=== PATIENT | male | born 1970 | race African-American/Black ===

== ENCOUNTER 2016-04-07 15:41 | Emergency (ER) | payer OTHER ==
--- NOTE | 2016-04-07 16:38 | DIAGNOSTIC IMAGING REPORT ---
PROCEDURE: XR CHEST 2 VIEW INDICATION: COUGH TECHNIQUE: PA and lateral views. COMPARISON: None. FINDINGS: Lungs are clear. Heart and mediastinum are normal. Thorax is normal. IMPRESSION: 1. Negative chest.
--- NOTE | 2016-04-07 17:54 | DIAGNOSTIC IMAGING REPORT ---
PROCEDURE: CT THORAX WITHOUT CONTRAST INDICATION: COUGH AND POSSIBLE FINDING ON CXR TECHNIQUE: Noncontrast axial images were obtained of the chest with coronal and sagittal reformations. COMPARISON: Chest x-ray 04/07/2016 FINDINGS: Calcified granulomas and right hilar lymph nodes. Minor alveolar infiltrate in the left lower lobe superior segment suggestive of pneumonitis. No enlarged lymph nodes or effusion. Normal thoracic aorta. Heart size is normal. Visualized upper abdomen is unremarkable. Mild degenerative changes of the spine. IMPRESSION: 1. Minor left lower lobe infiltrate suggestive of pneumonia 2. Old granulomatous disease 3. Results discussed with Dr. Whitfield
--- NOTE | 2016-04-07 18:03 | ED CLINICAL REPORT ---
Clinical Report - Physicians/Mid Levels [facility] [address] [place] [address] 04/07/2016 15:42 Patient: JOAN ODMÍNGUEZ Arrived- By private vehicle. Historian- patient. HISTORY OF PRESENT ILLNESS Chief Complaint: COUGH. This started the past week and is still present and worsening. It was gradual in onset and has been constant but is not gone now. The illness is described as moderate. The patient has had sputum production, a cough, nasal congestion and fever. No muscle aches or chills. Additional history - No known contact with a sick individual. No recent travel. (reports mild anterior headache only when coughing. no head ache at rest. locate to the anterior forehead). Similar symptoms previously: None. Recent medical care: Not recently seen/assessed. REVIEW OF SYSTEMS No diarrhea, abdominal pain or skin rash. All systems otherwise negative, except as recorded above. PAST HISTORY See nurses notes. Medications: ALPRAZolam Oral. Wellbutrin Oral. Allergies: No Known Drug Allergy. SOCIAL HISTORY Smoker- current status unknown. Occasional alcohol use. History of drug use: marijuana. No recent travel. Is a local resident. FAMILY HISTORY Negative. ADDITIONAL NOTES The nursing notes have been reviewed. PHYSICAL EXAM Vital Signs: 04/07/2016 15:43 BP: 150/97. HR: 87. RR: 18. O2 saturation: 98%. Temp: 99.3 F. Hypertensive. Oxygen saturation normal. Appearance: Alert. No acute distress. Eyes: Pupils equal, round and reactive to light. Eyes normal inspection. ENT: Ears normal. Nose normal. Pharynx normal. Uvula midline. (no papilledema. Normal appearing retinal vasculature). Neck: Normal inspection. Neck supple. No meningeal signs. CVS: Normal heart rate and rhythm. Heart sounds normal. Pulses normal. Respiratory: No respiratory distress. Breath sounds normal. No rales, rhonchi, wheezes or stridor. Abdomen: Soft and nontender. No organomegaly. Skin: Skin warm and dry. Normal skin color. No rash. Normal skin turgor. Extremities: Extremities exhibit normal ROM. No lower extremity edema. Neuro: Oriented X 3. No motor deficit. No sensory deficit. Reflexes normal. LABS, X-RAYS, AND EKG Chest X-ray: (PROCEDURE: XR CHEST 2 VIEW INDICATION: COUGH TECHNIQUE: PA and lateral views. COMPARISON: None. FINDINGS: Lungs are clear. Heart and mediastinum are normal. Thorax is normal. IMPRESSION: 1. Negative chest.). PROGRESS AND PROCEDURES Course of Care: the patient is a pleasant 45-year-old male presenting for evaluation of cough that has been going for the past week. Patient reports fever in addition to the cough however reports no fever at this time. Headache is also anterior and only occurs when he coughs. Patient is agreeable to the treatment and plan. Patient otherwise is nontoxic and in no acute distress. Medications for the cough has been provided. The patient's chest x-ray as noted for granulomatous findings. I discussed with patient in regards to CT scan of the chest for evaluation of these. There is also a particular point on the patient's right chest that was somewhat concerning for possible cavitary lesion. This is not mentioned on the patient'sread from radiology., However base and the patient's symptoms would be concern for possible cavitary mass. The patient's CT scan was remarkable for pneumonia. This was not found on patient's chest x-ray. Because of the findings onCT scan, patient will be treated with antibiotics. Vital signs here in the emergency department are unremarkable. The patient is admitted to the hospital require further emergency department workup/evaluation. On further discussion with patient, patient's significant other wanted to speak to me in private. Significant other states that she has a history of HIV. Patient has been reportedly negative for HIV however in light of this, encouraged patient to follow up with his primary care doctor for further evaluation of his HIV status. Patient was agreeable to this. I discussed the patient workup, diagnosis, home care, follow-up, and return precautions. All questions answered. The patient expressed understanding of these instructions and was agreeable to that. Prior to patient's discharge from the emergency department is noted to be nontoxic and in no acute distress. Lungs are clear on examination. No evidence of sepsis. CLINICAL IMPRESSION 04/07/2016 15:47 Pain level now: 11/01. 04/07/2016 15:43 BP: 150/97. HR: 87. RR: 18. O2 saturation: 98%. Temp: 99.3 F. Blood pressure normal. Oxygen saturation normal. Bacterial pneumonia. Empiric antibiotics given in the ED and prescribed. (acute left lower lobe). Nontraumatic lumbar back pain associated with muscle strain. (acute exacerbation of chronic). INSTRUCTIONS Warnings: GENERAL WARNINGS: Return or contact your physician immediately if your condition worsens or changes unexpectedly, if not improving as expected, or if other problems arise. Specifically return if pain, vomiting, bleeding, breathing difficulty or fever. Your Current Medications: CONTINUE TAKING THE FOLLOWING MEDICATIONS: ALPRAZolam Oral. Wellbutrin Oral. Prescription Medications: Azithromycin Z-Orestes: Take according to package instructions. No refills. Phenergan w/ Codeine 10mg / 6.25mg per 5 mL: take 1 teaspoon every 6 hours as needed for pain or cough. Dispense sixty (60) mL. No refill. Substitution is permissible. Hydrocodone/APAP 5mg / 325mg: take 1 orally every 6 hours as needed for pain. Dispense twelve (12). No refill. Follow-up: Return to the emergency department as needed. Follow up with your doctor in three days. Reason for referral: recheck today's concerns. Summary of care provided to patient via paper. Screening today revealed the patient's blood pressure to be in the normal range. The patient should follow up with a primary care provider for blood pressure management. Understanding of the discharge instructions verbalized by patient. (Electronically signed by Sam Whitfield Dr. 04/12/2016 18:03)
--- NOTE | 2016-04-07 18:03 | ED NURSING NOTES ---
Clinical Report - Nurses [facility] [address] [place] [address] 04/07/2016 15:42 Patient: JOAN DOMÍNGUEZ TRIAGE Triage time 15:44. Acuity: LEVEL 4. Chief Complaint: "FLU", FEVER and COUGH and ("cough till I get a headache"). Alert. No acute distress. SEPSIS SCREEN: Sepsis Screen. Negative (no infection suspected/documented). EARNEST COMA SCORE: [place] Coma Scale: 15- eyes open spontaneously (4); best verbal response- oriented x 4 (5); best motor response- obeys commands (6). --15:47 Sarah Spencer R.N. 15:43 04/07/16. BP: 150/97. HR: 87. RR: 18. O2 saturation: 98%. Temp: 99.3 F. --15:47 Sarah Spencer R.N. 15:47 04/07/16. Pain level now: 11/01. --15:47 Sarah Spencer R.N. Weight: 74.8 kg stated. Height/Length: 73 inches Per Patient. BMI: 21.8. --15:47 Sarah Spencer R.N. Medications ALPRAZolam Oral. Wellbutrin Oral. --15:45 Sarah Spencer R.N. Allergies No Known Drug Allergy. --15:45 Sarah Spencer R.N. History Arrived by private vehicle. Historian: patient. Unaccompanied. Primary physician (none). Onset. (1 week ago). Treatment PILLOW AGENT: None. PAST MEDICAL HX: Immunizations: up-to-date. SOCIAL HX: Light tobacco smoker (cigarette)- less than 1/2 a pack per day. Occasional alcohol use; consumes beer. History of drug use: marijuana. (stopped smoking a few years ago). No recent travel. No infectious disease exposure. No known contact with a sick individual. ABUSE ASSESSMENT: Abuse assessment: The patient was asked "Do you feel safe in your home?" and "Has anyone hurt you or threatened to hurt you?". No report of abuse. SELF HARM ASSESSMENT: A self harm assessment was performed. The patient answered "no" to the question "Do you have thoughts of harming or killing yourself?" and "Have you recently had thoughts about harming or killing others?". NUTRITIONAL RISK ASSESSMENT: The nutritional risk assessment revealed no deficiencies. FUNCTIONAL ASSESSMENT: Functional assessment: no impairments noted. LEARNING NEEDS ASSESSMENT: The learning needs assessment revealed no barriers. --15:47 Sarah Spencer R.N. PROBLEMS: Back Pain. Abrasion(s). Bipolar Disorder. Depression. --15:46 Sarah Spencer R.N. ADDITIONAL SURGERIES: Hernia Repair. --15:46 Sarah Spencer R.N. Interventions ID band on patient. Ambulatory. --15:47 Sarah Spencer R.N. PHYSICAL ASSESSMENT Ambulatory to room. GENERAL / NEURO / PSYCH: Alert. Appears in no acute distress. RESPIRATORY: Respirations not labored. CVS: Capillary refill less than 2 seconds. SKIN: Skin intact. Skin is warm and dry. --15:47 Sarah Spencer R.N. NURSING PROGRESS NOTES Patient gowned. Head of bed elevated. Two patient identifiers checked. Call light placed in reach. Side rails up x 2. Bed placed in lowest position. Brakes of bed on. Patient ready for evaluation- chart flagged. --15:48 Sarah Spencer R.N. Patient ID band checked for patient name, birthdate and medical record number: patient confirmed. Flu swab obtained by RN via nasal pharyngeal swab. Labeled in the presence of the patient and sent to lab. --15:51 Sarah Spencer R.N. Patient transported to radiology by stretcher with [employer]. --16:24 Sarah Spencer R.N. 16:41 04/07/2016 PHENERGAN-CODEINE (Promethazine-Codeine) PO 10 mL given. Allergies verified and confirmed 5 rights. --16:41 Sarah Spencer R.N. 16:41 04/07/2016 Tylenol (Acetaminophen) PO 650 mg given. Allergies verified and confirmed 5 rights. --16:41 Sarah Spencer R.N. 16:43 04/07/2016 Toradol (Ketorolac Tromethamine) IM 60 mg given. Given in the right gluteus rosetta. Allergies verified and confirmed 5 rights. --16:43 Sarah Spencer R.N. 17:03 04/07/2016 Ativan (LORazepam) PO 1 mg given. Allergies verified, confirmed 5 rights and sedative warning given to the patient. --17:03 Sarah Spencer R.N. 17:05 04/07/2016 Toradol IM Response: no adverse reaction the patient feels better. --17:05 Sarah Spencer R.N. Patient transported to MA by stretcher with tech. --17:28 Sarah Spencer R.N. Patient returned from CT by stretcher with tech. --17:37 Sarah Spencer R.N. 18:13 04/07/2016 Azithromycin PO 500 mg given. Allergies verified and confirmed 5 rights. --18:13 Sarah Spencer R.N. 18:15 04/07/2016 Morphine (Morphine Sulfate (PF)) IM 5 mg given. Given in the right deltoid. Allergies verified, confirmed 5 rights and sedative warning given to the patient. --18:15 Sarah Spencer R.N. 18:30 04/07/2016 Morphine IM Response: no adverse reaction symptoms have improved. --18:38 Sarah Spencer R.N. DISPOSITION / DISCHARGE 18:30 04/07/16. BP: 136/89. HR: 79. RR: 17. O2 saturation: 99%. Temp: 99.1 F. Mclaughlin-Perez pain scale: 4/10. --18:36 Sarah Spencer R.N. 18:30. Departure time: 1830. Condition at departure: stable. No learning barriers present. Discharge instructions provided and reviewed with the patient. Reviewed medication(s) side effects, precautions, dosing and course information. Prescription(s) given to the patient. Reviewed referral to family practice for followup. Patient verbalized understanding. Written instructions provided in Turkmen. The patient was discharged home and accompanied by steel rigger. He left the Emergency Department ambulatory and via private vehicle. Menagerie Caretaker driving. Medication list reviewed and validated. --18:37 Sarah Spencer R.N. Locked/Released at 04/07/2016 18:38 by Sarah Spencer R.N.
--- NOTE | 2016-04-07 18:03 | ED NURSING NOTES ---
Clinical Report - Nurses [facility] [address] [place] [address] 04/07/2016 15:42 Patient: JOAN DOMÍNGUEZ TRIAGE Triage time 15:44. Acuity: LEVEL 4. Chief Complaint: "FLU", FEVER and COUGH and ("cough till I get a headache"). Alert. No acute distress. SEPSIS SCREEN: Sepsis Screen. Negative (no infection suspected/documented). EARNEST COMA SCORE: [place] Coma Scale: 15- eyes open spontaneously (4); best verbal response- oriented x 4 (5); best motor response- obeys commands (6). --15:47 Sarah Spencer R.N. 15:43 04/07/16. BP: 150/97. HR: 87. RR: 18. O2 saturation: 98%. Temp: 99.3 F. --15:47 Sarah Spencer R.N. 15:47 04/07/16. Pain level now: 11/01. --15:47 Sarah Spencer R.N. Weight: 74.8 kg stated. Height/Length: 73 inches Per Patient. BMI: 21.8. --15:47 Sarah Spencer R.N. Medications ALPRAZolam Oral. Wellbutrin Oral. --15:45 Sarah Spencer R.N. Allergies No Known Drug Allergy. --15:45 Sarah Spencer R.N. History Arrived by private vehicle. Historian: patient. Unaccompanied. Primary physician (none). Onset. (1 week ago). Treatment LEAD TECHNICAL WRITER: None. PAST MEDICAL HX: Immunizations: up-to-date. SOCIAL HX: Light tobacco smoker (cigarette)- less than 1/2 a pack per day. Occasional alcohol use; consumes beer. History of drug use: marijuana. (stopped smoking a few years ago). No recent travel. No infectious disease exposure. No known contact with a sick individual. ABUSE ASSESSMENT: Abuse assessment: The patient was asked "Do you feel safe in your home?" and "Has anyone hurt you or threatened to hurt you?". No report of abuse. SELF HARM ASSESSMENT: A self harm assessment was performed. The patient answered "no" to the question "Do you have thoughts of harming or killing yourself?" and "Have you recently had thoughts about harming or killing others?". NUTRITIONAL RISK ASSESSMENT: The nutritional risk assessment revealed no deficiencies. FUNCTIONAL ASSESSMENT: Functional assessment: no impairments noted. LEARNING NEEDS ASSESSMENT: The learning needs assessment revealed no barriers. --15:47 Sarah Spencer R.N. PROBLEMS: Back Pain. Abrasion(s). Bipolar Disorder. Depression. --15:46 Sarah Spencer R.N. ADDITIONAL SURGERIES: Hernia Repair. --15:46 Sarah Spencer R.N. Interventions ID band on patient. Ambulatory. --15:47 Sarah Spencer R.N. PHYSICAL ASSESSMENT Ambulatory to room. GENERAL / NEURO / PSYCH: Alert. Appears in no acute distress. RESPIRATORY: Respirations not labored. CVS: Capillary refill less than 2 seconds. SKIN: Skin intact. Skin is warm and dry. --15:47 Sarah Spencer R.N. NURSING PROGRESS NOTES Patient gowned. Head of bed elevated. Two patient identifiers checked. Call light placed in reach. Side rails up x 2. Bed placed in lowest position. Brakes of bed on. Patient ready for evaluation- chart flagged. --15:48 Sarah Spencer R.N. Patient ID band checked for patient name, birthdate and medical record number: patient confirmed. Flu swab obtained by RN via nasal pharyngeal swab. Labeled in the presence of the patient and sent to lab. --15:51 Sarah Spencer R.N. Patient transported to radiology by stretcher with [employer]. --16:24 Sarah Spencer R.N. 16:41 04/07/2016 PHENERGAN-CODEINE (Promethazine-Codeine) PO 10 mL given. Allergies verified and confirmed 5 rights. --16:41 Sarah Spencer R.N. 16:41 04/07/2016 Tylenol (Acetaminophen) PO 650 mg given. Allergies verified and confirmed 5 rights. --16:41 Sarah Spencer R.N. 16:43 04/07/2016 Toradol (Ketorolac Tromethamine) IM 60 mg given. Given in the right gluteus rosetta. Allergies verified and confirmed 5 rights. --16:43 Sarah Spencer R.N. 17:03 04/07/2016 Ativan (LORazepam) PO 1 mg given. Allergies verified, confirmed 5 rights and sedative warning given to the patient. --17:03 Sarah Spencer R.N. 17:05 04/07/2016 Toradol IM Response: no adverse reaction the patient feels better. --17:05 Sarah Spencer R.N. Patient transported to OR by stretcher with tech. --17:28 Sarah Spencer R.N. Patient returned from CT by stretcher with tech. --17:37 Sarah Spencer R.N. 18:13 04/07/2016 Azithromycin PO 500 mg given. Allergies verified and confirmed 5 rights. --18:13 Sarah Spencer R.N. 18:15 04/07/2016 Morphine (Morphine Sulfate (PF)) IM 5 mg given. Given in the right deltoid. Allergies verified, confirmed 5 rights and sedative warning given to the patient. --18:15 Sarah Spencer R.N. 18:30 04/07/2016 Morphine IM Response: no adverse reaction symptoms have improved. --18:38 Sarah Spencer R.N. DISPOSITION / DISCHARGE 18:30 04/07/16. BP: 136/89. HR: 79. RR: 17. O2 saturation: 99%. Temp: 99.1 F. Mclaughlin-Perez pain scale: 4/10. --18:36 Sarah Spencer R.N. 18:30. Departure time: 1830. Condition at departure: stable. No learning barriers present. Discharge instructions provided and reviewed with the patient. Reviewed medication(s) side effects, precautions, dosing and course information. Prescription(s) given to the patient. Reviewed referral to family practice for followup. Patient verbalized understanding. Written instructions provided in Albanian. The patient was discharged home and accompanied by railroad detective. He left the Emergency Department ambulatory and via private vehicle. Coal Shoveler driving. Medication list reviewed and validated. --18:37 Sarah Spencer R.N. Locked/Released at 04/07/2016 18:38 by Sarah Spencer R.N.
--- NOTE | 2016-04-07 18:04 | ED ORDER SUMMARY ---
..... Patient: JOAN DOMÍNGUEZ OrderSheet [facility] VisitID: [id number] [place] [address] 45y, M Registration Date/Time: 04/07/2016 ORDER SHEET Weight: 74.8 kg (stated) Allergies: No Known Drug Allergy GENERAL ORDERS: Chest 2V Urgent (16:05 04/07/2016 Jonnie Arevalo) (Ack 16:12 NHouse ER Tech1) (16:40 SReitz R.N.) CT Thorax wo Cont Urgent (16:49 04/07/2016 Jonnie Arevalo) (Ack 17:00 SReitz R.N.) (17:36 SReitz R.N.) MEDICATION ORDERS: Toradol IM 60 mg (NOW) (16:06 04/07/2016 Jonnie Arevalo) (Ack 16:36 SReitz R.N.) (16:43 SReitz R.N.) Tylenol PO 650 mg (NOW) (16:06 04/07/2016 Jonnie Arevalo) (Ack 16:36 SReitz R.N.) (16:41 SReitz R.N.) Phenergan-Codeine PO 10 mL (HIGH ALERT MEDICATION, NOW) (16:06 04/07/2016 Jonnie Arevalo) (Ack 16:36 SReitz R.N.) (16:41 SReitz R.N.) Ativan PO 1 mg (HIGH ALERT MEDICATION, NOW) (16:49 04/07/2016 Jonnie Arevlao) (Ack 17:02 SReitz R.N.) (17:03 SReitz R.N.) Morphine IM 5 mg (HIGH ALERT MEDICATION, NOW) (17:57 04/07/2016 Jonnie Arevalo) (Ack 18:09 SReitz R.N.) (18:15 SReitz R.N.) Azithromycin PO 500 mg (NOW) (17:57 04/07/2016 Jonnie Arevalo) (Ack 18:09 SReitz R.N.) (18:13 SReitz R.N.) IV FLUIDS: ORDER SHEET NOTES: [Electronically signed by Sarah Spencer R.N. (18:38 04/07/2016)] [Electronically signed by Sam Whitfield Dr. (18:03 04/12/2016)] [Electronically locked/signed by Sarah Spencer R.N. (18:38 04/07/2016)]
--- NOTE | 2016-04-07 18:04 | ED ORDER SUMMARY ---
..... Patient: JOAN DOMÍNGUEZ OrderSheet [facility] VisitID: [id number] [place] [address] 45y, M Registration Date/Time: 04/07/2016 ORDER SHEET Weight: 74.8 kg (stated) Allergies: No Known Drug Allergy GENERAL ORDERS: Chest 2V Urgent (16:05 04/07/2016 Jonnie Arevalo) (Ack 16:12 NHouse ER Tech1) (16:40 SReitz R.N.) CT Thorax wo Cont Urgent (16:49 04/07/2016 Jonnie Arevalo) (Ack 17:00 SReitz R.N.) (17:36 SReitz R.N.) MEDICATION ORDERS: Toradol IM 60 mg (NOW) (16:06 04/07/2016 Jonnie Arevalo) (Ack 16:36 SReitz R.N.) (16:43 SReitz R.N.) Tylenol PO 650 mg (NOW) (16:06 04/07/2016 Jonnie Arevalo) (Ack 16:36 SReitz R.N.) (16:41 SReitz R.N.) Phenergan-Codeine PO 10 mL (HIGH ALERT MEDICATION, NOW) (16:06 04/07/2016 Jonnie Arevalo) (Ack 16:36 SReitz R.N.) (16:41 SReitz R.N.) Ativan PO 1 mg (HIGH ALERT MEDICATION, NOW) (16:49 04/07/2016 Jonnie Arevalo) (Ack 17:02 SReitz R.N.) (17:03 SReitz R.N.) Morphine IM 5 mg (HIGH ALERT MEDICATION, NOW) (17:57 04/07/2016 Jonnie Arevalo) (Ack 18:09 SReitz R.N.) (18:15 SReitz R.N.) Azithromycin PO 500 mg (NOW) (17:57 04/07/2016 Jonnie Arevalo) (Ack 18:09 SReitz R.N.) (18:13 SReitz R.N.) IV FLUIDS: ORDER SHEET NOTES: [Electronically signed by Sarah Spencer R.N. (18:38 04/07/2016)] [Electronically signed by Sam Whitfield Dr. (18:03 04/12/2016)] [Electronically locked/signed by Sarah Spencer R.N. (18:38 04/07/2016)]
--- NOTE | 2016-04-12 18:03 | ED MED RECONCILIATION SUMMARY ---
Patient: JOAN DOMÍNGUEZ Medication Reconciliation Report [facility] VisitID: [id number] [address] [place] [address] 45y, M Registration Date/Time: 04/07/2016 Weight: 74.8 kg Height/Length: 73 in. BMI: 21.8 ALLERGIES: No Known Drug Allergy The patient's Home Medications are listed below: CONTINUE TAKING THE FOLLOWING MEDICATIONS: ALPRAZolam Oral Wellbutrin Oral The source(s) of the original Home Medication information: Not obtained. The following Medications were given to the patient in the Emergency Department: PHENERGAN-CODEINE [PO] PO 10 mL, administered: 04/07/2016 4:41:00 PM Tylenol [PO] PO 650 mg, administered: 04/07/2016 4:41:00 PM Toradol [IM] IM 60 mg, administered: 04/07/2016 4:43:00 PM Ativan [PO] PO 1 mg, administered: 04/07/2016 5:03:00 PM Azithromycin [PO] PO 500 mg, administered: 04/07/2016 6:13:00 PM Morphine [IM] IM 5 mg, administered: 04/07/2016 6:15:00 PM The following Medications were prescribed to the patient: Azithromycin Z-Orestes: Take according to package instructions. No refills. -- Sam Whitfield Dr. Phenergan w/ Codeine 10mg / 6.25mg per 5 mL: take 1 teaspoon every 6 hours as needed for pain or cough. Dispense sixty (60) mL. No refill. Substitution is permissible. -- Sam Whitfield Dr. Hydrocodone/APAP 5mg / 325mg: take 1 orally every 6 hours as needed for pain. Dispense twelve (12). No refill. -- Sam Whitfield Dr.
--- NOTE | 2016-04-12 18:03 | ED DISCHARGE INSTRUCTIONS ---
Patient: JOAN DOMÍNGUEZ General Instructions [facility] VisitID: [id number] [address] [place] [address] 45y, M Registration Date/Time: 04/07/2016 04/07/2016 15:47 Pain level now: 11/01. 04/07/2016 15:43 BP: 150/97. HR: 87. RR: 18. O2 saturation: 98%. Temp: 99.3 F. Blood pressure normal. Oxygen saturation normal. Bacterial pneumonia. Empiric antibiotics given in the ED and prescribed. (acute left lower lobe). Nontraumatic lumbar back pain associated with muscle strain. (acute exacerbation of chronic). INSTRUCTIONS Warnings: GENERAL WARNINGS: Return or contact your physician immediately if your condition worsens or changes unexpectedly, if not improving as expected, or if other problems arise. Specifically return if pain, vomiting, bleeding, breathing difficulty or fever. Your Current Medications: CONTINUE TAKING THE FOLLOWING MEDICATIONS: ALPRAZolam Oral. Wellbutrin Oral. Prescription Medications: Azithromycin Z-Orestes: Take according to package instructions. No refills. Phenergan w/ Codeine 10mg / 6.25mg per 5 mL: take 1 teaspoon every 6 hours as needed for pain or cough. Dispense sixty (60) mL. No refill. Substitution is permissible. Hydrocodone/APAP 5mg / 325mg: take 1 orally every 6 hours as needed for pain. Dispense twelve (12). No refill. Follow-up: Return to the emergency department as needed. Follow up with your doctor in three days. Reason for referral: recheck today's concerns. Summary of care provided to patient via paper. Screening today revealed the patient's blood pressure to be in the normal range. The patient should follow up with a primary care provider for blood pressure management. Understanding of the discharge instructions verbalized by patient. ADDITIONAL INFORMATION Pneumonia (Adult) Pneumonia is an infection deep within the lung, in the small air sacs (alveoli). It may be due to a virus or bacteria and is usually treated with an antibiotic. Severe cases require treatment in the hospital. Milder cases can be treated at home. Symptoms usually start to improve during the first2 days of treatment. Home Care: Rest at home for the first 23 days or until you feel stronger. When resuming activity, dont let yourself become overly tired. Avoid exposure to cigarette smoke (yours or others). You may use acetaminophen (Tylenol) or ibuprofen (Motrin, Advil) to control fever or pain, unless another medicine was prescribed. [NOTE: If you have chronic liver or kidney disease or ever had a stomach ulcer or GI bleeding, talk with your doctor before using these medicines.] (Aspirin should never be used in anyone under 18 years of age who is ill with a fever. It may cause severe liver damage.) Your appetite may be poor so a light diet is fine. Keep well hydrated by drinking 68 glasses of fluids per day (water, sport drinks such as Gatorade, sodas without caffeine, juices, tea, soup, etc.). This will help loosen secretions in the lung, making it easier for you to cough up the phlegm (sputum). If you also have heart or kidney disease, check with your doctor before you drink extra amounts of fluids. Finish all antibiotic medicine prescribed, even if you are feeling better after a few days. Follow Up with your doctor in the next 23 days (or as advised) to be sure you are responding properly to the medicine. [NOTE: If you are age 65 or older, or if you have chronic lung disease (asthma, emphysema or COPD), we recommendthe pneumococcal vaccination and a yearlyinfluenzavaccination(flu-shot) every . Ask your doctor about this.] Get Prompt Medical Attention if any of the following occur: Not getting better within the first 48 hours of treatment Increasing shortness of breath or rapid breathing (over 25 breaths/minute) Coughing up blood or increasing chest pain with breathing Fever of 100.4F (38C) oral or higher, not better with fever medication Increasing weakness, dizziness or fainting Increasing thirst or dry mouth Sinus pain, headache or a stiff neck Chest pain not caused by coughing Back Pain [Acute Or Chronic] Back pain is usually caused by an injury to the muscles or ligaments of the spine. Sometimes the disks that separate each bone in the spine may bulge and cause pain by pressing on a nearby nerve. Back pain may also appear after a sudden twisting/bending force (such as in a car accident), after a simple awkward movement, or lifting something heavy with poor body positioning. In either case, muscle spasm is often present and adds to the pain. Acute back pain usually gets better in one to two weeks. Back pain related to disk disease, arthritis in the spinal joints or spinal stenosis (narrowing of the spinal canal) can become chronic and last for months or years. Unless you had a physical injury (for example, a car accident or fall) X-rays are usually not ordered for the initial evaluation of back pain. If pain continues and does not respond to medical treatment, x-rays and other tests may be performed at a later time. Home Care: You may need to stay in bed the first few days. But, as soon as possible, begin sitting or walking to avoid problems with prolonged bed rest (muscle weakness, worsening back stiffness and pain, blood clots in the legs). When in bed, try to find a position of comfort. A firm mattress is best. Try lying flat on your back with pillows under your knees. You can also try lying on your side with your knees bent up towards your chest and a pillow between your knees. Avoid prolonged sitting. This puts more stress on the lower back than standing or walking. During the first two days after injury, apply an ICE PACK to the painful area for 20 minutes every 2-4 hours. This will reduce swelling and pain. HEAT (hot shower, hot bath or heating pad) works well for muscle spasm. You can start with ice, then switch to heat after two days. Some patients feel best alternating ice and heat treatments. Use the one method that feels the best to you. You may use acetaminophen (Tylenol) or ibuprofen (Motrin, Advil) to control pain, unless another pain medicine was prescribed. [NOTE: If you have chronic liver or kidney disease or ever had a stomach ulcer or GI bleeding, talk with your doctor before using these medicines.] Be aware of safe lifting methods and do not lift anything over 15 pounds until all the pain is gone. Follow Up with your doctor or this facility if your symptoms do not start to improve after one week. Physical therapy may be needed. [NOTE: If X-rays were taken, they will be reviewed by a radiologist. You will be notified of any new findings that may affect your care.] Get Prompt Medical Attention if any of the following occur: Pain becomes worse or spreads to your legs Weakness or numbness in one or both legs Loss of bowel or bladder control Numbness in the groin or genital area Azithromycin Oral tablet What is this medicine? AZITHROMYCIN (ju medrano) is a macrolide antibiotic. It is used to treat or prevent certain kinds of bacterial infections. It will not work for colds, flu, or other viral infections. How should I use this medicine? Take this medicine by mouth with a full glass of water. Follow the directions on the prescription label. The tablets can be taken with food or on an empty stomach. If the medicine upsets your stomach, take it with food. Take your medicine at regular intervals. Do not take your medicine more often than directed. Take all of your medicine as directed even if you think your are better. Do not skip doses or stop your medicine early. Talk to your press cleaner regarding the use of this medicine in children. Special care may be needed. What side effects may I notice from receiving this medicine? Side effects that you should report to your doctor or health memory care program director as soon as possible: allergic reactions like skin rash, itching or hives, swelling of the face, lips, or tongue confusion, nightmares or hallucinations dark urine difficulty breathing hearing loss irregular heartbeat or chest pain pain or difficulty passing urine redness, blistering, peeling or loosening of the skin, including inside the mouth white patches or sores in the mouth yellowing of the eyes or skin Side effects that usually do not require medical attention (report to your doctor or health memory care program director if they continue or are bothersome): diarrhea dizziness, drowsiness headache stomach upset or vomiting tooth discoloration vaginal irritation What may interact with this medicine? Do not take this medicine with any of the following medications: lincomycin This medicine may also interact with the following medications: amiodarone antacids cyclosporine digoxin magnesium nelfinavir phenytoin warfarin What if I miss a dose? If you miss a dose, take it as soon as you can. If it is almost time for your next dose, take only that dose. Do not take double or extra doses. Where should I keep my medicine? Keep out of the reach of children. Store at room temperature between 15 and 30 degrees C (59 and 86 degrees F). Throw away any unused medicine after the expiration date. What should I tell my health care provider before I take this medicine? They need to know if you have any of these conditions: kidney disease liver disease irregular heartbeat or heart disease an unusual or allergic reaction to azithromycin, erythromycin, other macrolide antibiotics, foods, dyes, or preservatives or trying to get breast-feeding What should I watch for while using this medicine? Tell your doctor or health memory care program director if your symptoms do not improve. Do not treat diarrhea with over the counter products. Contact your doctor if you have diarrhea that lasts more than 2 days or if it is severe and watery. This medicine can make you more sensitive to the sun. Keep out of the sun. If you cannot avoid being in the sun, wear protective clothing and use sunscreen. Do not use sun lamps or tanning beds/booths. Hydrocodone Bitartrate, Acetaminophen Oral tablet What is this medicine? ACETAMINOPHEN; HYDROCODONE (a set a VAN terese fen; domingo droe KOE done) is a pain reliever. It is used to treat mild to moderate pain. How should I use this medicine? Take this medicine by mouth. Swallow it with a full glass of water. Follow the directions on the prescription label. If the medicine upsets your stomach, take the medicine with food or milk. Do not take more than you are told to take. Talk to your press cleaner regarding the use of this medicine in children. This medicine is not approved for use in children. What side effects may I notice from receiving this medicine? Side effects that you should report to your doctor or health memory care program director as soon as possible: allergic reactions like skin rash, itching or hives, swelling of the face, lips, or tongue breathing problems confusion feeling faint or lightheaded, falls stomach pain yellowing of the eyes or skin Side effects that usually do not require medical attention (report to your doctor or health memory care program director if they continue or are bothersome): nausea, vomiting stomach upset What may interact with this medicine? alcohol antihistamines isoniazid medicines for depression, anxiety, or psychotic disturbances medicines for sleep muscle relaxants naltrexone narcotic medicines (opiates) for pain phenobarbital ritonavir tramadol What if I miss a dose? If you miss a dose, take it as soon as you can. If it is almost time for your next dose, take only that dose. Do not take double or extra doses. Where should I keep my medicine? Keep out of the reach of children. This medicine can be abused. Keep your medicine in a safe place to protect it from theft. Do not share this medicine with anyone. Selling or giving away this medicine is dangerous and against the law. Store at room temperature between 15 and 30 degrees C (59 and 86 degrees F). Protect from light. Keep container tightly closed. Throw away any unused medicine after the expiration date. Discard unused medicine and used packaging carefully. Pets and children can be harmed if they find used or lost packages. What should I tell my health care provider before I take this medicine? They need to know if you have any of these conditions: brain tumor Crohn's disease, inflammatory bowel disease, or ulcerative colitis drink more than 3 alcohol-containing drinks per day drug abuse or addiction head injury heart or circulation problems kidney disease or problems going to the bathroom liver disease lung disease, asthma, or breathing problems an unusual or allergic reaction to acetaminophen, hydrocodone, other opioid analgesics, other medicines, foods, dyes, or preservatives or trying to get breast-feeding What should I watch for while using this medicine? Tell your doctor or health memory care program director if your pain does not go away, if it gets worse, or if you have new or a different type of pain. You may develop tolerance to the medicine. Tolerance means that you will need a higher dose of the medicine for pain relief. Tolerance is normal and is expected if you take the medicine for a long time. Do not suddenly stop taking your medicine because you may develop a severe reaction. Your body becomes used to the medicine. This does NOT mean you are addicted. Addiction is a behavior related to getting and using a drug for a non-medical reason. If you have pain, you have a medical reason to take pain medicine. Your doctor will tell you how much medicine to take. If your doctor wants you to stop the medicine, the dose will be slowly lowered over time to avoid any side effects. You may get drowsy or dizzy when you first start taking the medicine or change doses. Do not drive, use machinery, or do anything that may be dangerous until you know how the medicine affects you. Stand or sit up slowly. There are different types of narcotic medicines (opiates) for pain. If you take more than one type at the same time, you may have more side effects. Give your health care provider a list of all medicines you use. Your doctor will tell you how much medicine to take. Do not take more medicine than directed. Call emergency for help if you have problems breathing. The medicine will cause constipation. Try to have a bowel movement at least every 2 to 3 days. If you do not have a bowel movement for 3 days, call your doctor or health memory care program director. Too much acetaminophen can be very dangerous. Do not take Tylenol (acetaminophen) or medicines that contain acetaminophen with this medicine. Many non-prescription medicines contain acetaminophen. Always read the labels carefully. You have been given the following additional information: Pneumonia (Adult) Back Pain (Acute Or Chronic) Azithromycin Oral tablet Hydrocodone Bitartrate, Acetaminophen Oral tablet (Electronically signed by Sam Whitfield Dr. 04/12/2016 18:03)
--- NOTE | 2016-04-12 18:03 | ED MED RECONCILIATION SUMMARY ---
Patient: JOAN DOMÍNGUEZ Medication Reconciliation Report [facility] VisitID: [id number] [address] [place] [address] 45y, M Registration Date/Time: 04/07/2016 Weight: 74.8 kg Height/Length: 73 in. BMI: 21.8 ALLERGIES: No Known Drug Allergy The patient's Home Medications are listed below: CONTINUE TAKING THE FOLLOWING MEDICATIONS: ALPRAZolam Oral Wellbutrin Oral The source(s) of the original Home Medication information: Not obtained. The following Medications were given to the patient in the Emergency Department: PHENERGAN-CODEINE [PO] PO 10 mL, administered: 04/07/2016 4:41:00 PM Tylenol [PO] PO 650 mg, administered: 04/07/2016 4:41:00 PM Toradol [IM] IM 60 mg, administered: 04/07/2016 4:43:00 PM Ativan [PO] PO 1 mg, administered: 04/07/2016 5:03:00 PM Azithromycin [PO] PO 500 mg, administered: 04/07/2016 6:13:00 PM Morphine [IM] IM 5 mg, administered: 04/07/2016 6:15:00 PM The following Medications were prescribed to the patient: Azithromycin Z-Orestes: Take according to package instructions. No refills. -- Sam Whitfield Dr. Phenergan w/ Codeine 10mg / 6.25mg per 5 mL: take 1 teaspoon every 6 hours as needed for pain or cough. Dispense sixty (60) mL. No refill. Substitution is permissible. -- Sam Whitfield Dr. Hydrocodone/APAP 5mg / 325mg: take 1 orally every 6 hours as needed for pain. Dispense twelve (12). No refill. -- Sam Whitfield Dr.
--- NOTE | 2016-04-12 18:03 | ED MAR SUMMARY ---
..... Medication Administration Record [facility] [address] [place] [address] Patient: JOAN DOMÍNGUEZ Visit ID: [id number] 45y, M Weight: 74.8 kg Height/Length: 73 in BMI: 21.8 ALLERGIES: No Known Drug Allergy Given 16:04/07/2016 Sarah Spencer R.N. Medication Administered: TYLENOL [PO] (ACETAMINOPHEN), Dose: 650 mg PO. Medication Ordered: Tylenol PO 650 mg (NOW). Given 16:04/07/2016 Sarah Spencer R.N. Medication Administered: PHENERGAN-CODEINE [PO] (PROMETHAZINE-CODEINE), Dose: 10 mL PO. Medication Ordered: Phenergan-Codeine PO 10 mL (HIGH ALERT MEDICATION, NOW). Given 16:04/07/2016 Sarah Spencer R.N. Medication Administered: TORADOL [IM] (KETOROLAC TROMETHAMINE), Dose: 60 mg IM. Medication Ordered: Toradol IM 60 mg (NOW). Given 17:03 04/07/2016 Sarah Spencer R.N. Medication Administered: ATIVAN [PO] (LORAZEPAM), Dose: 1 mg PO. Medication Ordered: Ativan PO 1 mg (HIGH ALERT MEDICATION, NOW). Given 18:13 04/07/2016 Sarah Spencer R.N. Medication Administered: AZITHROMYCIN [PO], Dose: 500 mg PO. Medication Ordered: Azithromycin PO 500 mg (NOW). Given 18:15 04/07/2016 Sarah Spencer R.N. Medication Administered: MORPHINE [IM] (MORPHINE SULFATE (PF)), Dose: 5 mg IM. Medication Ordered: Morphine IM 5 mg (HIGH ALERT MEDICATION, NOW).
--- NOTE | 2016-04-12 18:03 | ED MAR SUMMARY ---
..... Medication Administration Record [facility] [address] [place] [address] Patient: JOAN DOMÍNGUEZ Visit ID: [id number] 45y, M Weight: 74.8 kg Height/Length: 73 in BMI: 21.8 ALLERGIES: No Known Drug Allergy Given 16:04/07/2016 Sarah Spencer R.N. Medication Administered: TYLENOL [PO] (ACETAMINOPHEN), Dose: 650 mg PO. Medication Ordered: Tylenol PO 650 mg (NOW). Given 16:04/07/2016 Sarah Spencer R.N. Medication Administered: PHENERGAN-CODEINE [PO] (PROMETHAZINE-CODEINE), Dose: 10 mL PO. Medication Ordered: Phenergan-Codeine PO 10 mL (HIGH ALERT MEDICATION, NOW). Given 16:04/07/2016 Sarah Spencer R.N. Medication Administered: TORADOL [IM] (KETOROLAC TROMETHAMINE), Dose: 60 mg IM. Medication Ordered: Toradol IM 60 mg (NOW). Given 17:03 04/07/2016 Sarah Spencer R.N. Medication Administered: ATIVAN [PO] (LORAZEPAM), Dose: 1 mg PO. Medication Ordered: Ativan PO 1 mg (HIGH ALERT MEDICATION, NOW). Given 18:13 04/07/2016 Sarah Spencer R.N. Medication Administered: AZITHROMYCIN [PO], Dose: 500 mg PO. Medication Ordered: Azithromycin PO 500 mg (NOW). Given 18:15 04/07/2016 Sarah Spencer R.N. Medication Administered: MORPHINE [IM] (MORPHINE SULFATE (PF)), Dose: 5 mg IM. Medication Ordered: Morphine IM 5 mg (HIGH ALERT MEDICATION, NOW).
== END 2016-04-07 18:30 | disposition home or self-care (01) ==
LOC: ED SRH 15:41 → EDBD 15:43 → ED SRH 18:30
DX: J15.9 Unspecified bacterial pneumonia (principal); S39.012A Strain of muscle, fascia and tendon of lower back, initial encounter; X58.XXXA Exposure to other specified factors, initial encounter; Y92.9 Unspecified place or not applicable; Y93.9 Activity, unspecified; Y99.9 Unspecified external cause status; Z79.899 Other long term (current) drug therapy; Z72.0 Tobacco use

== ENCOUNTER 2016-04-16 14:25 | Emergency (ER) | payer OTHER ==
--- NOTE | 2016-04-16 17:20 | DIAGNOSTIC IMAGING REPORT ---
PROCEDURE: XR CHEST 2 VIEW INDICATION: SHORTNESS OF BREATH TECHNIQUE: PA and lateral views. COMPARISON: Chest 04/07/2016 FINDINGS: Lungs are clear. Heart and mediastinum are normal. Thorax is normal. IMPRESSION: 1. Negative chest.
--- NOTE | 2016-04-16 19:43 | ED NURSING NOTES ---
Clinical Report - Nurses [facility] [address] [place] [address] 04/16/2016 14:24 Patient: JOAN DOMÍNGUEZ TRIAGE Triage time 14:57. Acuity: LEVEL 4. Chief Complaint: "FLU" and COUGH. Alert. No acute distress. EARNEST COMA SCORE: [place] Coma Scale: 15- eyes open spontaneously (4); best verbal response- oriented x 4 (5); best motor response- obeys commands (6). --15:02 Nicole Hatfield R.N. 14:57 04/16/16. BP: 140/89. HR: 90. RR: 18. O2 saturation: 100% on room air. Temp: 98.3 F (oral). Pain level now: 5/10. --15:02 Nicole Hatfield R.N. Weight: 74.8 kg stated. Height/Length: 73 inches Per Patient. BMI: 21.8. --15:00 Nicole Hatfield R.N. Medications ALPRAZolam Oral. Wellbutrin Oral. --14:57 Nicole Hatfield R.N. Cough Relief Oral. --14:58 Nicole Hatfield R.N. Zithromax Z-Orestes Oral. --14:58 Nicole Hatfield R.N. Medication/allergy information source: the patient. --15:02 Nicole Hatfield R.N. Allergies No Known Drug Allergy. --14:57 Nicole Hatfield R.N. History Arrived by private vehicle. Historian: patient. Unaccompanied. Primary physician (none). Onset. (about 2 weeks). ( seen here for same, has finished antibiotic and doesn't feel better). SOCIAL HX: Heavy tobacco smoker- less than 1 pack per day. Occasional alcohol use. No drug use. FALL RISK ASSESSMENT: Fall risk assessment completed. No fall risk identified. FUNCTIONAL ASSESSMENT: Functional assessment: no impairments noted. LEARNING NEEDS ASSESSMENT: The learning needs assessment revealed no barriers. --15:02 Nicole Hatfield R.N. PROBLEMS: Pneumonia. Abrasion(s). Depression. Bipolar Disorder. Back Pain. --14:59 Nicole Hatfield R.N. ADDITIONAL SURGERIES: Hernia Repair. --14:59 Nicole Hatfield R.N. Assessment GENERAL / NEURO / PSYCH: Alert. Oriented X 4. Appears in no acute distress. Patient appears calm and cooperative. RESPIRATORY: Respirations not labored. SKIN: Skin is warm and dry. --15:02 Nicole Hatfield R.N. Interventions ID band on patient. To treatment room. --15:02 Nicole Hatfield R.N. PHYSICAL ASSESSMENT 15:06 04/16/16. Ambulatory to room. GENERAL / NEURO / PSYCH: Alert. Oriented X 4. Appears in no acute distress. RESPIRATORY: Respirations not labored. SKIN: Skin is warm and dry. --15:06 Nicole Hatfield R.N. NURSING PROGRESS NOTES 15:04/16/16. Call light placed in reach. Side rails up x 1. Bed placed in lowest position. Brakes of bed on. --15:06 Nicole Hatfield R.N. 17:04. The patient is resting quietly. --17:04 Nicole Hatfield R.N. 17:35 04/16/2016 Site #1 started via IV in the right forearm with an 20g angiocath, with aseptic technique and good blood return; one attempt. Blood drawn. Labeled in the presence of the patient and sent to the lab (red, green, purple tubes drawn). --17:35 Nicole Hatfield R.N. 17:35 04/16/2016 Started bag #1 1000 mL IV Fluids IV NS (Saline); at 1000 mL/hr over 1 hour(s) via site #1 --17:35 Nicole Hatfield R.N. 17:35 04/16/2016 Toradol IVP 30 mg given over 2 minute(s) via site #1. Allergies verified and confirmed 5 rights. IV patency established. IV site checked: no pain, redness, or swelling. IV flushed thoroughly pre- and post-medication administration. IVP given by RN. --17:35 Nicole Hatfield R.N. 17:36 04/16/2016 Dilaudid (HYDROmorphone HCl PF) IVP 1 mg given over 2 minute(s) via site #1. Allergies verified, confirmed 5 rights and sedative warning given to the patient. IV patency established. IV site checked: no pain, redness, or swelling. IV flushed thoroughly pre- and post-medication administration. IVP given by RN. --17:36 Nicole Hatfield R.N. 17:36 pt's asking for something for his anxiety and something for the alcohol with drawls he is starting. --17:37 Nicole Hatfield R.N. 18:12 04/16/2016 Site #1; patent and no signs of infiltration. Good blood return present. Converted to saline lock. Flushed with 10 mL saline. --18:12 Nicole Hatfield R.N. 18:12 04/16/2016 IV Fluids IV NS Discontinued: bag #1 infused. Total amount infused: 1000 mL. --18:12 Nicole Hatfield R.N. 18:44 04/16/2016 Ativan (LORazepam) IVP 1 mg given over 2 minute(s) via site #1. Allergies verified, confirmed 5 rights and sedative warning given to the patient. IV patency established. IV site checked: no pain, redness, or swelling. IV flushed thoroughly pre- and post-medication administration. IVP given by RN. --18:44 Nicole Hatfield R.N. 17:30 04/16/16. BP: 141/88. HR: 76. RR: 16. O2 saturation: 99% on room air. Pain level now: 0/10. --18:45 Nicole Hatfield R.N. 18:45. Reassessment after fluids administered and medication administered. He is calm and resting quietly. Overall patient status is improved- he states feels better. RESPIRATORY: No respiratory distress. SKIN: Skin is warm and dry. --18:45 Nicole Hatfield R.N. ( pt and pt's psychiatric secretary extremely rude to staff r/t pt not receiving px rx with discharge regardless of necessity.). --20:15 Rios Palacios R.N. ( pt and pt's psychiatric secretary cursing at staff and using vulgar language.). --20:16 Rios Palacios R.N. DISPOSITION / DISCHARGE 20:12 04/16/2016 Site #1 removed upon discharge. Bandaid applied. --20:17 Aden Shelby R.N. Departure time: 2020. Gown found on bed. Unable to locate patient. ( Pt had requested medication on discharge, when RN returned with discharge instructions and RX pt had left the facility. Last set of vital signs had not been obtained due to sudden departure of pt). The patient eloped. --20:22 Aden Shelby R.N. Locked/Released at 04/16/2016 20:29 by Rios Palacios R.N.
--- NOTE | 2016-04-16 19:43 | ED CLINICAL REPORT ---
Clinical Report - Physicians/Mid Levels [facility] [address] [place] [address] 04/16/2016 14:24 Patient: JOAN DOMÍNGUEZ Time Seen: 15:13. Arrived- By private vehicle. Historian- patient. HISTORY OF PRESENT ILLNESS Chief Complaint: BACK PAIN and CHRONIC BACK PAIN. It is described as being moderate in degree and in the area of the left side of the lower thoracic spine, upper lumbar spine, lower lumbar spine and right side of the lower thoracic spine. The quality is noted to be "pain" and similar to prior episodes. Modifying factors- worsened by bending over, lifting, coughing and taking deep breaths. Not relieved by anything. Onset- several days ago and it is still present. No bladder dysfunction, bowel dysfunction, sensory loss or motor loss. Patient notes the possibility of an injury. Mechanism of injury- (PT has had an upper respiratory illness, as well as pneumonia a couple of weeks ago, and has been coughing a lot. He states this has exacerbated his chronic back pain.). No other injury. Similar symptoms previously: Recent medical care: The patient was seen recently at this facility. REVIEW OF SYSTEMS No fever, eye discomfort, headache, sore throat or difficulty breathing. No chest pain, skin rash, abdominal pain, nausea or vomiting. No diarrhea, black stools, difficulty with urination, urinary frequency or hematuria. No bloody stools. The patient has had chills and a cough. All systems otherwise negative, except as recorded above. PAST HISTORY Problems: Depression. Bipolar Disorder. Back Pain. Additional Surgeries: Hernia Repair. Medications: Zithromax Z-Orestes Oral. Cough Relief Oral. ALPRAZolam Oral. Wellbutrin Oral. Allergies: No Known Drug Allergy. SOCIAL HISTORY Smoker- current status unknown. Alcohol use. No drug use. ADDITIONAL NOTES The nursing notes have been reviewed. PHYSICAL EXAM Vital Signs: 04/16/2016 14:57 BP: 140/89. HR: 90. RR: 18. O2 saturation: 100%. Temp: 98.3 F. Pain level now: 510. Have been reviewed. Appearance: Alert. No acute distress. (PT appears mildly uncomfortable.). HEENT: Normal external inspection. Eyes: Pupils equal, round and reactive to light. Neck: Normal inspection. Neck nontender. Painless ROM. CVS: Normal heart rate and rhythm. Heart sounds normal. Pulses normal. Respiratory: No respiratory distress. Breath sounds normal. Abdomen: Normal inspection. Soft and nontender. Back: Moderate soft tissue tenderness. Limited ROM in the back. Skin: Skin warm and dry. Normal skin color. No rash. Normal skin turgor. Extremities: Extremities exhibit normal ROM. Extremities nontender. Neuro: Oriented X 3. Mood/affect normal. No motor deficit. No sensory deficit. LABS, X-RAYS, AND EKG Chest X-ray: No acute disease. Normal lung markings present. Normal heart size. Mediastinum normal. Great vessels normal. Soft tissues normal. No infiltrate. No fracture. No bony lesion present. Views: PA and lateral. Technique: good. The X-rays were independently viewed by me, interpreted by the radiologist and contemporaneously by me and discussed with the radiologist. A comparison with prior films reveals that the findings are unchanged. Laboratory Tests: CBC w Diff: (CALEB: 04/16/2016 17:15) ( MsgRcvd 04/16/2016 17:52) Final results Test Result Flag Units (Reference) WHITE BLOOD COUNT 5.4 K/uL (4.5-11.5) RED BLOOD COUNT 4.98 M/uL (4.50-5.90) HEMOGLOBIN 16.5 gm/dL (13.5-17.5) HEMATOCRIT 48.6 % (41.0-53.0) MEAN CELL VOLUME 98 fL (80-100) MEAN CORPUSCULAR HGB 33 pg (26-34) MEAN CORPUSCULAR HGB CONC 34 g/dL (31-37) RED CELL DISTRIBUTION WIDTH 13.2 % (11.6-14.8) PLATELET COUNT 168 K/uL (150-400) NEUTROPHIL % 51.8 % (50-75) LYMPH % 33.4 % (25-40) MONO % 13.2 % (3-14) EOSINOPHIL % 1.1 % (0-4) BASOPHIL % 0.5 % (0-2) BNP: (CALEB: 04/16/2016 17:15) ( MsgRcvd 04/16/2016 18:15) Final results Test Result Flag Units (Reference) B-TYPE NATRIURETIC PEPTIDE 10.1 pg/ml (5-100) CMP: (CALEB: 04/16/2016 17:15) ( MsgRcvd 04/16/2016 18:26) Final results Test Result Flag Units (Reference) GLUCOSE 74 mg/dL (70-110) BUN 4 L mg/dL (7-18) CREATININE 0.7 mg/dL (0.6-1.3) Estimated GFR >60 mL/min Estimated GFR- >60 mL/min Note: Persistent reduction over 3 months in eGFR<60 mL/min/1.73 m2 defines CKD. Patients with eGFR values>=60 mL/min/1.73 m2 may also have CKD if evidence ofpersistent proteinuria. Additional information may be foundat www.kidney.org. SODIUM 142 mmol/L (136-145) POTASSIUM 3.8 mmol/L (3.5-5.1) CHLORIDE 106 mmol/L (98-107) CARBON DIOXIDE 25 mmol/L (21-32) CALCIUM 8.9 mg/dL (8.5-10.1) TOTAL PROTEIN 7.7 g/dL (6.4-8.2) ALBUMIN 3.6 g/dL (3.3-5.0) BILIRUBIN, TOTAL 0.5 mg/dL (0.0-1.0) ALKALINE PHOSPHATASE 88 U/L (46-116) AST (SGOT) 42 H U/L (15-37) ALT (SGPT) 38 U/L (12-78) . Pulse Oximetry: 04/16/2016 14:57 O2 saturation: 100%. (FIO2 - room air). Interpretation: normal. PROGRESS AND PROCEDURES Course of Care: PT was worked up with a chest x-ray, and no new pneumonia was seen. Labs showed no leukocytosis. He was given a liter of NS, IV Toradol, Dilaudid and Ativan, with improvement in sx. No emergent condition was identified. He was given a small prescription for Vicodin, and instructed to see his PCP for further issues with his back. Patient counseled in person regarding the patient's stable condition, test results, diagnosis and need for follow-up. Concerns were addressed. Old medical records reviewed. Disposition: Discharged. Condition: stable and improved. CLINICAL IMPRESSION Acute cough INSTRUCTIONS (Your chest x-ray and labs look good. You most likely have a residual cough from your pneumonia, and smoking also prolongs the symptoms. Please take the inhaler, as needed. Please avoid alcohol, and speak with your doctor about getting help with your smoking.). Warnings: GENERAL WARNINGS: Return or contact your physician immediately if your condition worsens or changes unexpectedly, if not improving as expected, or if other problems arise. Your Current Medications: CONTINUE TAKING THE FOLLOWING MEDICATIONS: ALPRAZolam Oral. Cough Relief Oral. Wellbutrin Oral. Zithromax Z-Orestes Oral. Prescription Medications: Hydrocodone/APAP 5mg / 325mg: take 1 orally every 6 hours as needed for pain. Dispense five (5). No refill. Albuterol HFA oral inhaler: inhale 2 puffs every 4 hours as needed for difficulty breathing. Dispense one (1) unit. No refill. Follow-up: Follow up with your doctor. Call for the next available appointment. Reason for referral: Follow up ER visit. Understanding of the discharge instructions verbalized by patient. (Electronically signed by Radha Ruiz MD 04/20/2016 10:15)
--- NOTE | 2016-04-16 19:43 | ED ORDER SUMMARY ---
..... Patient: JOAN DOMÍNGUEZ OrderSheet [facility] VisitID: [id number] [place] [address] 45y, M Registration Date/Time: 04/16/2016 ORDER SHEET Weight: 74.8 kg (stated) Allergies: No Known Drug Allergy GENERAL ORDERS: Chest 2V Urgent (17:04/16/2016 Marlene NATHAN) (Ack 17:08 Masoud) (17:15 DBeyer R.N.) CBC w Diff Urgent (17:04/16/2016 Marlene NATHAN) (Ack 17:08 Masoud) (17:35 Yaa R.N.) CMP Urgent (17:04/16/2016 Marlene NATHAN) (Ack 17:08 Masoud) (17:35 Yaa R.N.) BNP Urgent (17:04/16/2016 Marlene NATHAN) (Ack 17:08 Masoud) (17:35 Yaa R.N.) MEDICATION ORDERS: IV FLUIDS: IV NS : initial bolus 1000 mL (1000 mL/hr), then none - (NOW) (17:06 04/16/2016 Marlene NATHAN) (Ack 17:08 Yaa R.N.) (17:35 Yaa R.N.) Toradol IV 30 mg (NOW) (17:06 04/16/2016 Marlene NATHAN) (Ack 17:08 Yaa R.N.) (17:35 Yaa R.N.) Dilaudid IV 1 mg (HIGH ALERT MEDICATION, NOW) (17:06 04/16/2016 Marlene NATHAN) (Ack 17:08 Yaa R.N.) (17:36 Yaa R.N.) Ativan IV 1 mg (HIGH ALERT MEDICATION, NOW) (18:35 04/16/2016 Marlene NATHAN) (Ack 18:37 Yaa R.N.) (18:44 Yaa R.N.) ORDER SHEET NOTES: [Electronically signed by Rios Palacios R.N. (20:29 04/16/2016)] [Electronically signed by Radha Ruiz MD (10:15 04/20/2016)] [Electronically locked/signed by Rios Palacios R.N. (20:29 04/16/2016)]
--- NOTE | 2016-04-16 19:43 | ED NURSING NOTES ---
Clinical Report - Nurses [facility] [address] [place] [address] 04/16/2016 14:24 Patient: JOAN DOMÍNGUEZ TRIAGE Triage time 14:57. Acuity: LEVEL 4. Chief Complaint: "FLU" and COUGH. Alert. No acute distress. EARNEST COMA SCORE: [place] Coma Scale: 15- eyes open spontaneously (4); best verbal response- oriented x 4 (5); best motor response- obeys commands (6). --15:02 Nicole Hatfield R.N. 14:57 04/16/16. BP: 140/89. HR: 90. RR: 18. O2 saturation: 100% on room air. Temp: 98.3 F (oral). Pain level now: 5/10. --15:02 Nicole Hatfield R.N. Weight: 74.8 kg stated. Height/Length: 73 inches Per Patient. BMI: 21.8. --15:00 Nicole Hatfield R.N. Medications ALPRAZolam Oral. Wellbutrin Oral. --14:57 Nicole Hatfield R.N. Cough Relief Oral. --14:58 Nicole Hatfield R.N. Zithromax Z-Orestes Oral. --14:58 Nicole Hatfield R.N. Medication/allergy information source: the patient. --15:02 Nicole Hatfield R.N. Allergies No Known Drug Allergy. --14:57 Nicole Hatfield R.N. History Arrived by private vehicle. Historian: patient. Unaccompanied. Primary physician (none). Onset. (about 2 weeks). ( seen here for same, has finished antibiotic and doesn't feel better). SOCIAL HX: Heavy tobacco smoker- less than 1 pack per day. Occasional alcohol use. No drug use. FALL RISK ASSESSMENT: Fall risk assessment completed. No fall risk identified. FUNCTIONAL ASSESSMENT: Functional assessment: no impairments noted. LEARNING NEEDS ASSESSMENT: The learning needs assessment revealed no barriers. --15:02 Nicole Hatfield R.N. PROBLEMS: Pneumonia. Abrasion(s). Depression. Bipolar Disorder. Back Pain. --14:59 Nicole Hatfield R.N. ADDITIONAL SURGERIES: Hernia Repair. --14:59 Nicole Hatfield R.N. Assessment GENERAL / NEURO / PSYCH: Alert. Oriented X 4. Appears in no acute distress. Patient appears calm and cooperative. RESPIRATORY: Respirations not labored. SKIN: Skin is warm and dry. --15:02 Nicole Hatfield R.N. Interventions ID band on patient. To treatment room. --15:02 Nicole Hatfield R.N. PHYSICAL ASSESSMENT 15:06 04/16/16. Ambulatory to room. GENERAL / NEURO / PSYCH: Alert. Oriented X 4. Appears in no acute distress. RESPIRATORY: Respirations not labored. SKIN: Skin is warm and dry. --15:06 Nicole Hatfield R.N. NURSING PROGRESS NOTES 15:04/16/16. Call light placed in reach. Side rails up x 1. Bed placed in lowest position. Brakes of bed on. --15:06 Nicole Hatfield R.N. 17:04. The patient is resting quietly. --17:04 Nicole Hatfield R.N. 17:35 04/16/2016 Site #1 started via IV in the right forearm with an 20g angiocath, with aseptic technique and good blood return; one attempt. Blood drawn. Labeled in the presence of the patient and sent to the lab (red, green, purple tubes drawn). --17:35 Nicole Hatfield R.N. 17:35 04/16/2016 Started bag #1 1000 mL IV Fluids IV NS (Saline); at 1000 mL/hr over 1 hour(s) via site #1 --17:35 Nicole Hatfield R.N. 17:35 04/16/2016 Toradol IVP 30 mg given over 2 minute(s) via site #1. Allergies verified and confirmed 5 rights. IV patency established. IV site checked: no pain, redness, or swelling. IV flushed thoroughly pre- and post-medication administration. IVP given by RN. --17:35 Nicole Hatfield R.N. 17:36 04/16/2016 Dilaudid (HYDROmorphone HCl PF) IVP 1 mg given over 2 minute(s) via site #1. Allergies verified, confirmed 5 rights and sedative warning given to the patient. IV patency established. IV site checked: no pain, redness, or swelling. IV flushed thoroughly pre- and post-medication administration. IVP given by RN. --17:36 Nicole Hatfield R.N. 17:36 pt's asking for something for his anxiety and something for the alcohol with drawls he is starting. --17:37 Nicole Hatfield R.N. 18:12 04/16/2016 Site #1; patent and no signs of infiltration. Good blood return present. Converted to saline lock. Flushed with 10 mL saline. --18:12 Nicole Hatfield R.N. 18:12 04/16/2016 IV Fluids IV NS Discontinued: bag #1 infused. Total amount infused: 1000 mL. --18:12 Nicole Hatfield R.N. 18:44 04/16/2016 Ativan (LORazepam) IVP 1 mg given over 2 minute(s) via site #1. Allergies verified, confirmed 5 rights and sedative warning given to the patient. IV patency established. IV site checked: no pain, redness, or swelling. IV flushed thoroughly pre- and post-medication administration. IVP given by RN. --18:44 Nicole Hatfield R.N. 17:30 04/16/16. BP: 141/88. HR: 76. RR: 16. O2 saturation: 99% on room air. Pain level now: 0/10. --18:45 Nicole Hatfield R.N. 18:45. Reassessment after fluids administered and medication administered. He is calm and resting quietly. Overall patient status is improved- he states feels better. RESPIRATORY: No respiratory distress. SKIN: Skin is warm and dry. --18:45 Nicole Hatfield R.N. ( pt and pt's qa specialist extremely rude to staff r/t pt not receiving px rx with discharge regardless of necessity.). --20:15 R[place]acios R.N. ( pt and pt's qa specialist cursing at staff and using vulgar language.). --20:16 Rios Palacios R.N. DISPOSITION / DISCHARGE 20:12 04/16/2016 Site #1 removed upon discharge. Bandaid applied. --20:17 Aden Shelby R.N. Departure time: 2020. Gown found on bed. Unable to locate patient. ( Pt had requested medication on discharge, when RN returned with discharge instructions and RX pt had left the facility. Last set of vital signs had not been obtained due to sudden departure of pt). The patient eloped. --20:22 Aden Shelby R.N. Locked/Released at 04/16/2016 20:29 by Rios Palacios R.N.
--- NOTE | 2016-04-16 19:43 | ED ORDER SUMMARY ---
..... Patient: JOAN DOMÍNGUEZ OrderSheet [facility] VisitID: [id number] [place] [address] 45y, M Registration Date/Time: 04/16/2016 ORDER SHEET Weight: 74.8 kg (stated) Allergies: No Known Drug Allergy GENERAL ORDERS: Chest 2V Urgent (17:04/16/2016 Marlene NATHAN) (Ack 17:08 Masoud) (17:15 DBeyer R.N.) CBC w Diff Urgent (17:04/16/2016 Marlene NATHAN) (Ack 17:08 Masoud) (17:35 Yaa R.N.) CMP Urgent (17:04/16/2016 Marlene NATHAN) (Ack 17:08 Masoud) (17:35 Yaa R.N.) BNP Urgent (17:04/16/2016 Marlene NATHAN) (Ack 17:08 Masoud) (17:35 Yaa R.N.) MEDICATION ORDERS: IV FLUIDS: IV NS : initial bolus 1000 mL (1000 mL/hr), then none - (NOW) (17:06 04/16/2016 Marlene NATHAN) (Ack 17:08 Yaa R.N.) (17:35 Yaa R.N.) Toradol IV 30 mg (NOW) (17:06 04/16/2016 Marlene NATHAN) (Ack 17:08 Yaa R.N.) (17:35 Yaa R.N.) Dilaudid IV 1 mg (HIGH ALERT MEDICATION, NOW) (17:06 04/16/2016 Marlene NATHAN) (Ack 17:08 Yaa R.N.) (17:36 Yaa R.N.) Ativan IV 1 mg (HIGH ALERT MEDICATION, NOW) (18:35 04/16/2016 Marlene NATHAN) (Ack 18:37 Yaa R.N.) (18:44 Yaa R.N.) ORDER SHEET NOTES: [Electronically signed by Rios Palacios R.N. (20:29 04/16/2016)] [Electronically signed by Radha Ruiz MD (10:15 04/20/2016)] [Electronically locked/signed by Rios Palacios R.N. (20:29 04/16/2016)]
--- NOTE | 2016-04-20 10:16 | ED MED RECONCILIATION SUMMARY ---
Patient: JOAN DOMÍNGUEZ Medication Reconciliation Report [facility] VisitID: [id number] [address] [place] [address] 45y, M Registration Date/Time: 04/16/2016 Weight: 74.8 kg Height/Length: 73 in. BMI: 21.8 ALLERGIES: No Known Drug Allergy The patient's Home Medications are listed below: CONTINUE TAKING THE FOLLOWING MEDICATIONS: ALPRAZolam Oral Cough Relief Oral Wellbutrin Oral Zithromax Z-Orestes Oral The source(s) of the original Home Medication information: patient The following Medications were given to the patient in the Emergency Department: IV NS IV Fluids bolus 0, then 1000 mL/hr, administered: 04/16/2016 5:35:00 PM Toradol [IVP] IVP 30 mg, administered: 04/16/2016 5:35:00 PM Dilaudid [IVP] IVP 1 mg, administered: 04/16/2016 5:36:00 PM Ativan [IVP] IVP 1 mg, administered: 04/16/2016 6:44:00 PM The following Medications were prescribed to the patient: Hydrocodone/APAP 5mg / 325mg: take 1 orally every 6 hours as needed for pain. Dispense five (5). No refill. -- Radha Ruiz MD Albuterol HFA oral inhaler: inhale 2 puffs every 4 hours as needed for difficulty breathing. Dispense one (1) unit. No refill. -- Radha Ruiz MD
--- NOTE | 2016-04-20 10:16 | ED MED RECONCILIATION SUMMARY ---
Patient: JOAN DOMÍNGUEZ Medication Reconciliation Report [facility] VisitID: [id number] [address] [place] [address] 45y, M Registration Date/Time: 04/16/2016 Weight: 74.8 kg Height/Length: 73 in. BMI: 21.8 ALLERGIES: No Known Drug Allergy The patient's Home Medications are listed below: CONTINUE TAKING THE FOLLOWING MEDICATIONS: ALPRAZolam Oral Cough Relief Oral Wellbutrin Oral Zithromax Z-Orestes Oral The source(s) of the original Home Medication information: patient The following Medications were given to the patient in the Emergency Department: IV NS IV Fluids bolus 0, then 1000 mL/hr, administered: 04/16/2016 5:35:00 PM Toradol [IVP] IVP 30 mg, administered: 04/16/2016 5:35:00 PM Dilaudid [IVP] IVP 1 mg, administered: 04/16/2016 5:36:00 PM Ativan [IVP] IVP 1 mg, administered: 04/16/2016 6:44:00 PM The following Medications were prescribed to the patient: Hydrocodone/APAP 5mg / 325mg: take 1 orally every 6 hours as needed for pain. Dispense five (5). No refill. -- Radha Ruiz MD Albuterol HFA oral inhaler: inhale 2 puffs every 4 hours as needed for difficulty breathing. Dispense one (1) unit. No refill. -- Radha Ruiz MD
--- NOTE | 2016-04-20 10:16 | ED DISCHARGE INSTRUCTIONS ---
Patient: JOAN DOMÍNGUEZ General Instructions [facility] VisitID: [id number] [place] [address] 45y, M Registration Date/Time: 04/16/2016 Acute cough INSTRUCTIONS (Your chest x-ray and labs look good. You most likely have a residual cough from your pneumonia, and smoking also prolongs the symptoms. Please take the inhaler, as needed. Please avoid alcohol, and speak with your doctor about getting help with your smoking.). Warnings: GENERAL WARNINGS: Return or contact your physician immediately if your condition worsens or changes unexpectedly, if not improving as expected, or if other problems arise. Your Current Medications: CONTINUE TAKING THE FOLLOWING MEDICATIONS: ALPRAZolam Oral. Cough Relief Oral. Wellbutrin Oral. Zithromax Z-Orestes Oral. Prescription Medications: Hydrocodone/APAP 5mg / 325mg: take 1 orally every 6 hours as needed for pain. Dispense five (5). No refill. Albuterol HFA oral inhaler: inhale 2 puffs every 4 hours as needed for difficulty breathing. Dispense one (1) unit. No refill. Follow-up: Follow up with your doctor. Call for the next available appointment. Reason for referral: Follow up ER visit. Understanding of the discharge instructions verbalized by patient. ADDITIONAL INFORMATION Cough, Chronic, Uncertain Cause(Adult) Everyone has had a cough as part of the common cold, flu or bronchitis. This kind of cough occurs along with an achy feeling, low grade fever, nasal and sinus congestion, scratchy or sore throat. This gets better in two to three weeks. A cough that lasts longer than three weeks may is usually due to other causes. Based on your exam today, the exact cause of your cough is not certain. Below are some of the common causes for persistent cough. If the cough does not improve over the next two weeks, further testing may be needed. Follow up with your doctor as directed. Smokers Cough worse. The cough is from irritation in the air passages. Talk to your doctor about quitting. Nicotine patches, gum, inhaler, nasal spray or another method may make it easier. Post-Nasal Drip A cough that is worse at night may be due to postnasal drip. Excess mucus in the nose drains from the back of your nose to your throat and triggers the cough reflex. This may be due to a sinus infection or allergy. Common allergens include: dust, smoke, pollen mold, pets, cleaning agents, room deodorizers and chemical fumes. Over the counter antihistamines/decongestant may be helpful for allergies. A sinus infection requires antibiotic treatment. See your doctor if symptoms continue. Medicines Certain prescribed medicines can cause a chronic cough in some people: AL inhibitors for high blood pressure. These include Lotensin (benazepril), Capoten (captopril), Vasotec (enalapril), Monopril (fosinopril), Prinivil and Zestril (lisinopril), Accupril (quinapril), Altace (ramipril), and others. Beta-blockers for high blood pressure and other conditions. These include Inderal (propranolol), Tenormin (atenolol), Lopressor (metoprolol), Corgard (nadolol), and others. Let your doctor know if you are taking any of these. Asthma Cough may be the only sign of mild asthma. Your doctor can do lung testing to find out if this is the cause. Your response to a trial of asthma medicines may also help make the diagnosis. Acid Reflux (Heartburn) The esophagus is a tube that carries food from the mouth to the stomach.A valve at its lower endprevents stomach acids from flowing upward. If this valve does not work properly, acid from the stomach enters the esophagus. This may cause a burning pain in the upper abdomen or lower chest, belching, or cough. Symptoms are often worse when lying flat. Avoid eating or drinking before bedtime. Try using extra pillows to raise your upper body or place 4-inch blocks under the head of your bed. You may try an ibwa-kck-yqtyseg antacid (Tums or Mylanta) or an acid-blocking medicine (Pepcid AC, Tagamet HB, Zantac 75, or Prilosec OTC). Stronger medicines for this condition can be prescribed by your doctor. Follow Up with your doctor as directed if your cough does not improve over the next2 weeks. Further testing may be needed. [NOTE: If an x-ray was made, another specialist will review it. You will be notified of any new findings that may affect your care.] Get Prompt Medical Attention if any of the following occur: Wheezing or difficulty breathing Fever of 100.4F (38C) or higher, or as directed by your healthcare provider Unexpected weight loss Coughing up large amounts of colored sputum Coughing up blood Night sweats (sheets and pajamas get soaking wet) You have been given the following additional information: Cough, Chronic, Uncertain Cause, (Adult) (Electronically signed by Radha Ruiz MD 04/20/2016 10:15)
--- NOTE | 2016-04-20 10:16 | ED MAR SUMMARY ---
..... Medication Administration Record [facility] [address] [place] [address] Patient: JOAN DOMÍNGUEZ Visit ID: [id number] 45y, M Weight: 74.8 kg Height/Length: 73 in BMI: 21.8 ALLERGIES: No Known Drug Allergy Start 17:35 04/16/2016 Nicole Hatfield R.N., Stop 18:12 04/16/2016 Nicole Hatfield R.N. Medication Administered: IV NS (SALINE), Dose: IV Fluids over 1 hour(s), Rate: 1000 mL/hr, Dispensed: 1000 mL bag, Site: #1 right forearm. Medication Ordered: IV NS : initial bolus 1000 mL (1000 mL/hr), then none - (NOW). Given 17:35 04/16/2016 Nicole Hatfield R.N. Medication Administered: TORADOL [IVP], Dose: 30 mg IVP over 2 minute(s), Site: #1 right forearm. Medication Ordered: Toradol IV 30 mg (NOW). Given 17:36 04/16/2016 Nicole Hatfield R.N. Medication Administered: DILAUDID [IVP] (HYDROMORPHONE HCL PF), Dose: 1 mg IVP over 2 minute(s), Site: #1 right forearm. Medication Ordered: Dilaudid IV 1 mg (HIGH ALERT MEDICATION, NOW). Given 18:44 04/16/2016 Nicole Hatfield R.N. Medication Administered: ATIVAN [IVP] (LORAZEPAM), Dose: 1 mg IVP over 2 minute(s), Site: #1. Medication Ordered: Ativan IV 1 mg (HIGH ALERT MEDICATION, NOW).
--- NOTE | 2016-04-20 10:16 | ED MAR SUMMARY ---
..... Medication Administration Record [facility] [address] [place] [address] Patient: JOAN DOMÍNGUEZ Visit ID: [id number] 45y, M Weight: 74.8 kg Height/Length: 73 in BMI: 21.8 ALLERGIES: No Known Drug Allergy Start 17:35 04/16/2016 Nicole Hatfield R.N., Stop 18:12 04/16/2016 Nicole Hatfield R.N. Medication Administered: IV NS (SALINE), Dose: IV Fluids over 1 hour(s), Rate: 1000 mL/hr, Dispensed: 1000 mL bag, Site: #1 right forearm. Medication Ordered: IV NS : initial bolus 1000 mL (1000 mL/hr), then none - (NOW). Given 17:35 04/16/2016 Nicole Hatfield R.N. Medication Administered: TORADOL [IVP], Dose: 30 mg IVP over 2 minute(s), Site: #1 right forearm. Medication Ordered: Toradol IV 30 mg (NOW). Given 17:36 04/16/2016 Nicole Hatfield R.N. Medication Administered: DILAUDID [IVP] (HYDROMORPHONE HCL PF), Dose: 1 mg IVP over 2 minute(s), Site: #1 right forearm. Medication Ordered: Dilaudid IV 1 mg (HIGH ALERT MEDICATION, NOW). Given 18:44 04/16/2016 Nicole Hatfield R.N. Medication Administered: ATIVAN [IVP] (LORAZEPAM), Dose: 1 mg IVP over 2 minute(s), Site: #1. Medication Ordered: Ativan IV 1 mg (HIGH ALERT MEDICATION, NOW).
== END 2016-04-16 20:21 | disposition home or self-care (01) ==
LOC: ED SRH 14:25
DX: R05 Cough (principal); M54.9 Dorsalgia, unspecified; G89.29 Other chronic pain; Z87.01 Personal history of pneumonia (recurrent); F17.200 Nicotine dependence, unspecified, uncomplicated
CPT/HCPCS: 90100; 91320; 95059